=== PATIENT | female | born 1955 | race African-American/Black ===

== ENCOUNTER 2016-10-02 13:13 | Emergency (ER) | payer MEDICARE ==
[2016-10-02] MEDS ORDERED: NS 0.9% 1000 ML* 1,000 ML IV ONE (13:59)
[2016-10-02 14:37] LABS: Hematocrit 37 % (35-47); Hemoglobin 12.2 g/dl (12.0-16.0); Mean Corpuscular HGB Conc 33 g/dl (31-36); Mean Corpuscular Hemoglobin 30 pg (27-31); Mean Corpuscular Volume 91 fL (80-97); Mean Platelet Volume 9 um3 (7.4-10.4); Red Blood Count 4.08 10^6/ul (4.0-5.4); Red Cell Distribution Width 13 % (10.5-15); White Blood Count 14.4 10^3/ul (3.5-10.8)
[2016-10-02 14:47] LABS: Calcium 9.6 mg/dL (8.6-10.3); EGFR African American 110.1 (>60); EGFR Non-African American 85.6 (>60); Globulin 2.6 g/dL (2-4); Potassium 3.5 mmol/L (3.5-5.0); Total Bilirubin 0.5 mg/dL (0.2-1.0); Total Protein 6.6 g/dL (6.4-8.9)
[2016-10-02 14:50] VITALS: BP 95/53
[2016-10-02] MEDS ORDERED: Iohexol 300* (CONTRAST) 10 ML SDV IV ONE (15:02)
[2016-10-02 15:03] LABS: Urine Bacteria Absent (Absent); Urine Bilirubin Negative (Negative); Urine Glucose Negative (Negative); Urine Nitrite Negative (Negative)
--- NOTE | 2016-10-02 15:25 | RAD ---
HISTORY: Weakness, fall COMPARISONS: None TECHNIQUE: Multiple contiguous axial CT scans were obtained of the head without intravenous contrast. FINDINGS: HEMORRHAGE/INFARCT: There is no hemorrhage or acute infarct. MASSES/SHIFT: There is no mass or shift. EXTRA-AXIAL SPACES: There are no extra-axial fluid collections. SULCI AND VENTRICLES: The sulci and ventricles are normal in size and position for the patient's stated age. CEREBRUM: There are no focal parenchymal abnormalities. BRAINSTEM: There are no focal parenchymal abnormalities. CEREBELLUM: There are no focal parenchymal abnormalities. VESSELS: The vessels are grossly normal. PARANASAL SINUSES: The paranasal sinuses are clear. ORBITS: The orbits are unremarkable. BONES AND SOFT TISSUE: No bone or soft tissue abnormalities are noted. OTHER: None IMPRESSION: NO ACUTE INTRACRANIAL PATHOLOGY.
[2016-10-02] MEDS: Morphine INJ* 4 MG/ML 1 ML SYRINGE IV ONE ×2 (15:33→15:36)
[2016-10-02] MEDS: Ondansetron INJ* 2 MG/ML VIAL IV ONE ×2 (15:33→15:36)
[2016-10-02] MEDS: NS 0.9% 1000 ML* 1,000 ML IV ONE ×2 (15:33→15:35)
--- NOTE | 2016-10-02 15:43 | RAD ---
HISTORY: Trauma, right upper quadrant pain, difficulty breathing COMPARISONS: None TECHNIQUE: Multiple contiguous axial CT scans were obtained of the chest, abdomen, and pelvis after the administration of intravenous contrast. Coronal and sagittal multiplanar reformations are submitted for review.. Oral contrast was not administered. FINDINGS: CHEST NECK AND THYROID: The lower neck and thyroid are unremarkable. CHEST WALL: There is no lower cervical, axillary, or supraclavicular lymphadenopathy by size criteria. HEART AND PERICARDIUM: The heart is unremarkable. AORTA AND PULMONARY VASCULATURE: The aorta and pulmonary vasculature are normal. MEDIASTINUM: There is no mediastinal lymphadenopathy by size criteria. AGNIESZKA: There is no hilar lymphadenopathy by size criteria. AIRWAY AND ESOPHAGUS: The airway is unremarkable, without endobronchial filling defect. The esophagus is grossly normal. LUNG PARENCHYMA: The lungs are clear. PLEURA: There is a small right pneumothorax BONES AND SOFT TISSUES: There are fractures of the right fifth, sixth, seventh RIBS with minimal displacement. ABDOMEN/PELVIS: LIVER: There are 2 low-attenuation hepatic parenchymal lesions, in the right lobe of liver. These are too small to definitively characterize, measuring up to 0.5 cm in size. BILE DUCTS: There is no intrahepatic or extrahepatic biliary dilatation. GALLBLADDER: The gallbladder is normal, without pericholecystic inflammatory change. PANCREAS: The pancreas is normal, without mass or ductal dilatation. SPLEEN: Normal in size and appearance. UPPER GI TRACT: Evaluation of the gastrointestinal tract is limited by incomplete gastric distention. The upper GI tract is unremarkable. SMALL BOWEL \T\ MESENTERY: The small bowel is normal in contour, course, and caliber. There is no obstruction or dilatation. COLON: There are extensive diverticula of the sigmoid colon. There is no pericolonic inflammatory change. ADRENALS: Normal bilaterally. KIDNEYS: The kidneys are normal in shape, size, contour, and axis. There is no hydronephrosis or nephrolithiasis. BLADDER: The bladder is smooth in contour. PELVIC ORGANS: There is prominence of the vasculature along the broad ligament bilaterally with enlargement of the gonadal veins bilaterally. The pelvic organs are otherwise normal. AORTA: The aorta is normal. IVC: Unremarkable LYMPH NODES: There is no lymphadenopathy by size criteria. ABDOMINAL WALL: There is no evidence for abdominal wall hernia. BONES: There are mild diffuse degenerative changes. OTHER: None IMPRESSION: 1. RIGHT-SIDED RIB FRACTURES, WITH A SMALL RIGHT PNEUMOTHORAX. 2. EXTENSIVE DIVERTICULOSIS OF THE DISTAL COLON. 3. SMALL, LOW-ATTENUATION HEPATIC PARENCHYMAL LESIONS. THESE ARE TOO SMALL TO DEFINITIVELY CHARACTERIZE BUT LIKELY REPRESENT SMALL CYSTS VERSUS HEMANGIOMAS, IN THE ABSENCE OF A HISTORY OF MALIGNANCY. 4. ENLARGEMENT OF THE GONADAL VEINS BILATERALLY WITH PROMINENCE OF THE VESSELS ALONG THE BROAD LIGAMENT BILATERALLY. WHILE NONSPECIFIC, THIS CAN BE ASSOCIATED WITH PELVIC CONGESTION SYNDROME IN THE CORRECT CLINICAL SETTING. PRELIMINARY FINDINGS WERE DISCUSSED WITH DR. KWAN IN THE EMERGENCY DEPARTMENT AT APPROXIMATELY 3:40 PM ON OCTOBER 02, 2016.
--- NOTE | 2016-10-02 16:11 | ED ---
I, Gage,Santiago, scribed for Shannon Kwan MD on 10/02/16 at 1352 . Complex/Multi-Sys Presentation - HPI Summary HPI Summary: This 61 y/o female presents to ED for a fall and SOB today. Pt reports that pt "slipped and fell" in bathroom at 0600 AM this morning. Pt denies any head injury. She fell onto her right side, and is currently c/o pain on right lateral rib pain. Pt also reports developing SOB and wheezing during graduation ceremony at 1300 PM. She is currently c/o lightheaded dizziness. PMHx includes MS, but she denies any Hx of DM or HTN. FHx is positive for DM to mother. Pt is visiting [place] from [place] for her daughter graduation at [place] today. Plan of care involving imaging studies is discussed with pt and present at bedside. Pt states that she would prefer to be back into graduation celebration as soon as possible, but is agreeable to scans at this moment. - History Of Current Complaint Chief Complaint: EDDizziness Time Seen by Provider: 10/02/16 13:20 Hx Obtained From: Patient, Family/Elementary Reading Specialist - present at bedside Onset/Duration: Sudden Onset Timing: Intermittent, Lasting: Associated Signs And Symptoms: Positive: Dizziness - lightheadedness, SOB, Chest Pain - right lateral rib pain. Negative: Fever - Allergies/Home Medications Allergies/Adverse Reactions: Allergies Allergy/AdvReac Type Severity Reaction Status Date / Time Sulfa Antibiotics Allergy Itching Verified 10/02/16 13:27 PMH/Surg Hx/FS Hx/Imm Hx Neurological History: Reports: Other Neuro Impairments/Disorders - MS Infectious Disease History: No Infectious Disease History: Denies: Traveled Outside the [place] in Last 30 Days - Family History Known Family History: Positive: Diabetes - Social History Lives: With Family Alcohol Use: Occasionally Hx Substance Use: No Substance Use Type: Reports: None Hx Tobacco Use: Yes Smoking Status (MU): Former Smoker Review of Systems Negative: Fever, Chills Positive: Chest Pain - right lateral rib pain Positive: Shortness Of Breath, Other - Positive wheezing Neurological: Other - Positive for dizziness lightheadedness All Other Systems Reviewed And Are Negative: Yes Physical Exam Triage Information Reviewed: Yes Vital Signs On Initial Exam: Initial Vitals Temp Pulse Resp BP Pulse Ox 98.8 F 100 16 107/46 100 10/02/16 13:21 10/02/16 13:21 10/02/16 13:21 10/02/16 13:21 10/02/16 13:21 Vital Signs Reviewed: Yes Appearance: Positive: Well-Appearing, No Pain Distress Skin: Positive: Other - Ecchymosis noted on right lateral rib Head/Face: Positive: Normal Head/Face Inspection Eyes: Positive: EOMI, REGGIE ENT: Negative: Other - Negative crepitus Neck: Positive: Supple, Nontender Respiratory/Lung Sounds: Positive: Clear to Auscultation, Breath Sounds Present Cardiovascular: Positive: RRR, Pulses are Symmetrical in both Upper and Lower Extremities Abdomen Description: Positive: Other: - RUQ tenderness Musculoskeletal: Positive: Strength/ROM Intact. Negative: Other - negative mildline and paracervical tenderness Neurological: Positive: Sensory/Motor Intact, Alert, Oriented to Person Place, Time Psychiatric: Positive: Affect/Mood Appropriate AVPU Assessment: Alert - Blair Coma Scale Coma Scale Total: 15 Diagnostics - Vital Signs Vital Signs Temp Pulse Resp BP Pulse Ox 10/02/16 13:36 96 17 100 10/02/16 13:34 92/51 10/02/16 13:23 98.8 F 95 16 107/46 100 10/02/16 13:21 98.8 F 100 16 107/46 100 - Laboratory Lab Results: Lab Results 10/02/16 10/02/16 10/02/16 Range/Units 14:20 14:20 14:50 WBC 14.4 H (3.5-10.8) 10^3/ul RBC 4.08 (4.0-5.4) 10^6/ul Hgb 12.2 (12.0-16.0) g/dl Hct 37 (35-47) % MCV 91 (80-97) fL MCH 30 (27-31) pg MCHC 33 (31-36) g/dl RDW 13 (10.5-15) % Plt Count 211 (150-450) 10^3/ul MPV 9 (7.4-10.4) um3 Neut % (Auto) 97.0 H (38-83) % Lymph % (Auto) 1.2 L (25-47) % [place] % (Auto) 1.5 (1-9) % Eos % (Auto) 0 (0-6) % Baso % (Auto) 0.3 (0-2) % Absolute Neuts (auto) 13.9 H (1.5-7.7) 10^3/ul Absolute Lymphs (auto) 0.2 L (1.0-4.8) 10^3/ul Absolute Monos (auto) 0.2 (0-0.8) 10^3/ul Absolute Eos (auto) 0 (0-0.6) 10^3/ul Absolute Basos (auto) 0 (0-0.2) 10^3/ul Absolute Nucleated RBC 0 10^3/ul Nucleated RBC % 0 Sodium 140 (133-145) mmol/L Potassium 3.5 (3.5-5.0) mmol/L Chloride 108 (101-111) mmol/L Carbon Dioxide 27 (22-32) mmol/L Anion Gap 5 (2-11) mmol/L BUN 14 (6-24) mg/dL Creatinine 0.70 (0.51-0.95) mg/dL Est GFR ( Amer) 110.1 (>60) Est GFR (Non-Af Amer) 85.6 (>60) BUN/Creatinine Ratio 20.0 (8-20) Glucose 108 H (70-100) mg/dL Calcium 9.6 (8.6-10.3) mg/dL Total Bilirubin 0.50 (0.2-1.0) mg/dL AST 20 (13-39) U/L ALT 15 (7-52) U/L Alkaline Phosphatase 41 (34-104) U/L Total Protein 6.6 (6.4-8.9) g/dL Albumin 4.0 (3.2-5.2) g/dL Globulin 2.6 (2-4) g/dL Albumin/Globulin Ratio 1.5 (1-3) Urine Color Yellow Urine Appearance Clear Urine pH 6.0 (5-9) Ur Specific [place] 1.018 (1.010-1.030) Urine Protein Negative (Negative) Urine Ketones Trace H (Negative) Urine Blood Negative (Negative) Urine Nitrate Negative (Negative) Urine Bilirubin Negative (Negative) Urine Urobilinogen Negative (Negative) Ur Leukocyte Esterase 3+ H (Negative) Urine WBC (Auto) 3+(>20/hpf) H (Absent) Urine RBC (Auto) Absent (Absent) Ur Squamous Epith Cells Present H (Absent) Urine Bacteria Absent (Absent) Urine Glucose Negative (Negative) Result Diagrams: 10/02/16 14:20 10/02/16 14:20 Lab Statement: Any lab studies that have been ordered have been reviewed, and results considered in the medical decision making process. - CT Brain CT Interpretation: No Acute Changes CT Interpretation Completed By: Radiologist CT Chest/Ab/P CT Interpretation: Positive (See Comments) - 1. RIGHT-SIDED RIB FRACTURES, WITH A SMALL RIGHT PNEUMOTHORAX. 2. EXTENSIVE DIVERTICULOSIS OF THE DISTAL COLON. 3. SMALL, LOW-ATTENUATION HEPATIC PARENCHYMAL LESIONS. THESE ARE TOO SMALL TO DEFINITIVELY CHARACTERIZE BUT LIKELY REPRESENT SMALL CYSTS VERSUS HEMANGIOMAS, IN THE ABSENCE OF A HISTORY OF MALIGNANCY. 4. ENLARGEMENT OF THE GONADAL VEINS BILATERALLY WITH PROMINENCE OF THE VESSELS ALONG THE BROAD LIGAMENT BILATERALLY. WHILE NONSPECIFIC, THIS CAN BE ASSOCIATED WITH PELVIC CONGESTION SYNDROME IN THE CORRECT CLINICAL SETTING. PRELIMINARY FINDINGS WERE DISCUSSED WITH DR. KWAN IN THE EMERGENCY DEPARTMENT AT APPROXIMATELY 3:40 PM ON OCTOBER 02, 2016. CT Interpretation Completed By: Radiologist - EKG 1322 Cardiac Rate: NL - 97 bpm EKG Rhythm: Sinus Rhythm ST Segment: Normal Ectopy: None Complex Multi-Symp Course/Dx Course Of Treatment: 61 yo female who fell over the tub with 3 consecutive rib fxs and a small pneumothorax on the right who signed out AMA because she is visiting [facility] for her daughters graduation from [place]. Pt and her partner know to return for worsened symptoms - Diagnoses Provider Diagnoses: Rib fracture, Pneumothorax - Physician Notifications Discussed Care Of Patient With: Dr. Garces (Surgery) at 1545 PM Time Discussed With Above Provider: 15:45 Discharge - Discharge Plan Condition: Stable Disposition: AGAINST MEDICAL ADVICE Prescriptions: oxyCODONE/Acetamin 5/325 MG* [Percocet 5/325 TAB*] 1 tab PO Q8H PRN #10 tab MDD 3 PRN Reason: Pain oxyCODONE/Acetamin 5/325 MG* [Percocet 5/325 TAB*] 1 tab PO Q8H PRN #10 tab MDD 3 PRN Reason: Pain Patient Education Materials: Oxycodone/Acetaminophen (By mouth), Traumatic Pneumothorax (ED), Rib Fracture (ED) Referrals: Non Staff,Doctor [Primary Care Provider] - 2 Days The documentation as recorded by the scribGage samayoa Soohyun accurately reflects the service I personally performed and the decisions made by me, Shannon Kwan MD.
--- NOTE | 2016-10-05 09:11 | PN ---
Progress Note - Progress Note Note: Pt urine culture grew normal mel and E coli 25-50,000 so likely containment. no uti symptoms per chart so will not treat at this time.
== END 2016-10-02 16:16 | disposition left against medical advice (07) ==
LOC: ED 13:13
DX: S22.31XA Fracture of one rib, right side, initial encounter for closed fracture (principal); J93.9 Pneumothorax, unspecified; R06.02 Shortness of breath; R42 Dizziness and giddiness; R07.9 Chest pain, unspecified; R07.81 Pleurodynia; Z87.891 Personal history of nicotine dependence; K57.90 Diverticulosis of intestine, part unspecified, without perforation or abscess without bleeding; W19.XXXA Unspecified fall, initial encounter; Y93.9 Activity, unspecified; Y92.9 Unspecified place or not applicable; Y99.9 Unspecified external cause status
CPT/HCPCS: 36415; 70450; 71260; 74177; 80053; 81003; 81015; 85025; 87077; 87086; 87186; 93005; 96374; 99283; J2270; J2405; Q9967